=== PATIENT | male | born 1955 | race Two or more races ===

== ENCOUNTER 2019-06-16 19:07 | Inpatient (IN) | payer BC, OTHER ==
[~2019-06-16] VITALS: Ht 205.7 cm; Wt 141.5 kg
[2019-06-16] MEDS ORDERED: SODIUM CHLORIDE 0.9% 500 ML IV ONE (20:15)
[2019-06-16] MEDS: NOREPINEPHRINE 8 MG/250ML KIT 250 ML IV SCH (20:20)
[2019-06-16] MEDS ORDERED: NOREPINEPHRINE 8 MG/250ML KIT 250 ML IV SCH (20:35)
[2019-06-16 21:17] LABS: Basophils # (auto) 0 10 ^3/uL (0-0.2); Basophils % (auto) 0.2 % (0.0-2.0); Eosinophils # (auto) 0 10 ^3/uL (0-0.8); Hematocrit 25.7 % (41.0-53.0); Hemoglobin 8.1 g/dL (13.5-17.5); Platelet Count (auto) 314 10^3/uL (140-450)
[2019-06-16 21:19] LABS: Eosinophils % (auto) 0.2 % (0.0-7.0); Lymphocytes # (auto) 0.8 10 ^3/uL (0.4-5.4); Lymphocytes % (auto) 5.2 % (10.0-50.0); Mean Corpuscular Hemoglobin 24.2 pg (28.0-32.0); Mean Corpuscular Hgb Conc. 31.4 g/dL (32.0-36.0); Mean Corpuscular Volume 76.9 fL (80.0-100.0); Monocytes % (auto) 6.6 % (0.0-12.0); Neutrophils # (auto) 13.8 10 ^3/uL (1.6-8.6); Neutrophils % (auto) 87.8 % (37.0-80.0); Red Blood Cells 3.34 10^6/uL (4.5-5.90); Red Cell Distribution Width 17.2 % (11.8-14.3); White Blood Cell 15.7 10^3/uL (4.4-10.8)
[2019-06-16 21:34] LABS: Albumin 2.2 g/dL (3.4-5.0); Calcium 8.7 mg/dL (8.5-10.1); Magnesium 2.5 mg/dL (1.6-2.6); Potassium 3.2 mmol/L (3.5-5.1)
[2019-06-16 21:38] LABS: Partial Thromboplastin Time 54.9 sec (23.64-32.05)
[2019-06-16 21:40] LABS: INR 4.89 (0.9-1.15)
[2019-06-16 21:42] LABS: BUN/Creatinine Ratio 18.4; Bilirubin, Total 0.3 mg/dL (0.2-1.0); Total Protein 6.5 g/dL (6.4-8.2)
[2019-06-17 01:02] LABS: Urine Bacteria MOD /hpf (None Seen); Urine Blood 3+ /uL (Negative); Urine Mucus FEW (None Seen); Urine Specific Gravity 1.014 (1.001-1.035); Urine WBC 4500 /hpf (0 - 3); Urine WBC Clumps PRESENT /hpf (None Seen)
[2019-06-17] MEDS ORDERED: SODIUM CHLORIDE 0.9% 1,000 ML IV SCH (01:45)
[2019-06-17] MEDS ORDERED: MORPHINE SULFATE 4 MG/ML SYR/VIAL IV PRN (01:45)
[2019-06-17] MEDS ORDERED: DEXTROSE (50%) 50ML SYRG IV PRN (01:45)
[2019-06-17] MEDS ORDERED: ACETAMINOPHEN 325 MG TAB PO PRN (01:45)
[2019-06-17] MEDS ORDERED: NITROGLYCERIN 0.4 MG SL TAB SL PRN (01:45)
[2019-06-17] MEDS ORDERED: POTASSIUM CHLORIDE 20 MEQ in D5W 5% 1,000 ML IV ONE (01:45)
[2019-06-17] MEDS ORDERED: HYDROcodone-ACET 5/325MG TAB PO PRN (01:45)
[2019-06-17] MEDS: cefTRIAXone 1GM/50ML D5W 50 ML IV SCH (02:23)
[2019-06-17] MEDS: POTASSIUM CHL 20MEQ/100ML 100 ML IV SCH ×2 (03:32→05:33)
[2019-06-17 03:38] LABS: Alcohol, Urine < 3.0 mg/dL (0-5); Amphetamine Screen, Urine NEGATIVE (NEGATIVE); Barbiturate Scree,Urine NEGATIVE (NEGATIVE); Cannabinoid Screen, Urine NEGATIVE (NEGATIVE); Cocaine Screen, Urine NEGATIVE (NEGATIVE); Opiate Scree,Urine NEGATIVE (NEGATIVE); Phencyclidine Screen, Urine NEGATIVE (NEGATIVE)
[2019-06-17 03:46] LABS: Benzodiazephine Screen, Urine POSITIVE (NEGATIVE)
[2019-06-17] MEDS: InsuLIN REG 1unit/0.01ml Soln (100units/ml) SC SCH ×5 (04:00→20:00)
[2019-06-17] MEDS: ACCU-CHEK COMFORT CURVE STRIP VI SCH ×5 (04:06→20:00)
[2019-06-17 06:53] LABS: Basophils # (auto) 0.1 10 ^3/uL (0-0.2); Eosinophils # (auto) 0.1 10 ^3/uL (0-0.8); Hematocrit 29.3 % (41.0-53.0); Lymphocytes # (auto) 1.6 10 ^3/uL (0.4-5.4); Mean Corpuscular Volume 77.8 fL (80.0-100.0); Red Blood Cells 3.76 10^6/uL (4.5-5.90)
[2019-06-17 06:54] LABS: Basophils % (auto) 0.6 % (0.0-2.0); Eosinophils % (auto) 0.5 % (0.0-7.0); Hemoglobin 9.1 g/dL (13.5-17.5); Lymphocytes % (auto) 9.7 % (10.0-50.0); Mean Corpuscular Hemoglobin 24.1 pg (28.0-32.0); Monocytes # (auto) 1.3 10 ^3/uL (0-1.3); Monocytes % (auto) 8.1 % (0.0-12.0); Neutrophils # (auto) 13.6 10 ^3/uL (1.6-8.6); Neutrophils % (auto) 81.1 % (37.0-80.0); Platelet Count (auto) 391 10^3/uL (140-450); Red Cell Distribution Width 17.1 % (11.8-14.3); White Blood Cell 16.8 10^3/uL (4.4-10.8)
[2019-06-17 07:06] LABS: Calcium 8.9 mg/dL (8.5-10.1); Potassium 3.3 mmol/L (3.5-5.1)
[2019-06-17 07:11] LABS: BUN/Creatinine Ratio 17.2
[2019-06-17] MEDS ORDERED: SODIUM BICARBONATE 50ML VIAL 75 ML, POTASSIUM CHLORIDE 20 MEQ in SOD CHL 0.45% 1,000 ML IV SCH (10:00)
[2019-06-17 10:25] LABS: INR 5.02 (0.9-1.15)
[2019-06-17] MEDS ORDERED: BUMETANIDE 2.5mg/10ml (0.25 mg/ml) INJ IV ONE (11:00)
[2019-06-17] MEDS ORDERED: POTASSIUM CHL 20 Meq TABLET PO ONE ×2 (11:15→17:15)
[2019-06-17 12:42] LABS: Folate (Folic Acid) 16.79 ng/mL (5.38-24)
[2019-06-17] MEDS: NOREPINEPHRINE 8 MG/250ML KIT 250 ML IV SCH ×2 (14:38→19:33)
[2019-06-17] MEDS: SODIUM BICARBONATE 50ML VIAL 75 ML, POTASSIUM CHLORIDE 20 MEQ in SOD CHL 0.45% 1,000 ML IV SCH ×2 (15:28→22:15)
[2019-06-17] MEDS ORDERED: WARF5TAB71 PO (15:39)
[2019-06-17] MEDS ORDERED: AMLO5TAB15 PO (15:41)
[2019-06-17] MEDS ORDERED: METO-169 PO (15:42)
[2019-06-17] MEDS ORDERED: CLON0.3D4 PO (15:43)
[2019-06-17] MEDS ORDERED: BENA5TAB5 PO (15:45)
[2019-06-17] MEDS ORDERED: ATOR20TA PO (15:45)
[2019-06-17] MEDS ORDERED: SEMA2INJ SC (15:47)
[2019-06-17] MEDS ORDERED: TAMS0.4C36 PO (15:48)
[2019-06-17] MEDS ORDERED: MIRA25TA OR (15:49)
[2019-06-17 16:30] LABS: Calcium 8.6 mg/dL (8.5-10.1); Magnesium 1.9 mg/dL (1.6-2.6)
[2019-06-17 16:32] LABS: BUN/Creatinine Ratio 18.1
[2019-06-17 16:36] LABS: Potassium 2.9 mmol/L (3.5-5.1)
[2019-06-17] MEDS ORDERED: TAMSULOSIN HYDROCHLORIDE 0.4 MG CAP PO ONE (17:00)
[2019-06-17] MEDS ORDERED: dilTIAZem 25 MG/5 ML VIAL IV PRN (17:00)
[2019-06-17] MEDS: DOBUTamine 1000MCG/ML 250 ML IV SCH ×2 (17:13→23:21)
[2019-06-17] MEDS ORDERED: POTASSIUM CHLORIDE 40 MEQ in D5W 5% 1,000 ML IV SCH (17:15)
[2019-06-17] MEDS ORDERED: SODIUM CHLORIDE 0.9% 2,000 ML IV ONE (17:15)
[2019-06-17] MEDS ORDERED: POTASSIUM CHL 20MEQ/100ML 100 ML IV ONE ×2 (17:30→19:30)
[2019-06-17] MEDS: ONDANSETRON HCL 4 MG/2 ML VIAL IV PRN (22:01)
[2019-06-17] MEDS: MORPHINE SULF INJ 2 MG/ML SYRINGE 1ML IV PRN ×2 (22:01→22:36)
[2019-06-18] VITALS (42 sets, daily range): BP systolic 93–148; BP diastolic 32–90
[2019-06-18] MEDS: ACCU-CHEK COMFORT CURVE STRIP VI SCH ×6 (00:07→20:11)
[2019-06-18] MEDS: InsuLIN REG 1unit/0.01ml Soln (100units/ml) SC SCH ×6 (00:22→20:00)
[2019-06-18] MEDS: NOREPINEPHRINE 8 MG/250ML KIT 250 ML IV SCH ×2 (01:35→06:36)
[2019-06-18] MEDS: cefTRIAXone 1GM/50ML D5W 50 ML IV SCH (02:00)
[2019-06-18 02:13] LABS: Basophils # (auto) 0.1 10 ^3/uL (0-0.2); Eosinophils # (auto) 0.3 10 ^3/uL (0-0.8); Nucleated Red Blood Cells % 0.1 %; White Blood Cell 14.8 10^3/uL (4.4-10.8)
[2019-06-18 02:15] LABS: Basophils % (auto) 0.5 % (0.0-2.0); Eosinophils % (auto) 2.1 % (0.0-7.0); Hemoglobin 8.4 g/dL (13.5-17.5); Lymphocytes # (auto) 1.8 10 ^3/uL (0.4-5.4); Lymphocytes % (auto) 12.3 % (10.0-50.0); Mean Corpuscular Hemoglobin 23.5 pg (28.0-32.0); Mean Corpuscular Hgb Conc. 30.1 g/dL (32.0-36.0); Mean Corpuscular Volume 78.2 fL (80.0-100.0); Monocytes # (auto) 1.3 10 ^3/uL (0-1.3); Monocytes % (auto) 8.6 % (0.0-12.0); Neutrophils # (auto) 11.3 10 ^3/uL (1.6-8.6); Neutrophils % (auto) 76.5 % (37.0-80.0); Platelet Count (auto) 391 10^3/uL (140-450); Red Blood Cells 3.58 10^6/uL (4.5-5.90); Red Cell Distribution Width 17.7 % (11.8-14.3)
[2019-06-18 02:34] LABS: BUN/Creatinine Ratio 19.3; Calcium 8.1 mg/dL (8.5-10.1); Potassium 3.3 mmol/L (3.5-5.1)
[2019-06-18] MEDS ORDERED: POTASSIUM CHL 20MEQ/100ML 100 ML IV ONE (04:15)
[2019-06-18] MEDS: DOBUTamine 1000MCG/ML 250 ML IV SCH ×4 (05:29→23:53)
[2019-06-18] MEDS: DOCUSATE SOD 100 MG CAP PO PRN (05:34)
[2019-06-18] MEDS: SODIUM BICARBONATE 50ML VIAL 75 ML, POTASSIUM CHLORIDE 20 MEQ in SOD CHL 0.45% 1,000 ML IV SCH ×2 (08:08→16:19)
[2019-06-18] MEDS: ONDANSETRON HCL 4 MG/2 ML VIAL IV PRN (08:31)
[2019-06-18] MEDS ORDERED: SODIUM CHLORIDE 0.9% 1,000 ML IV ONE (08:45)
--- NOTE | 2019-06-18 09:30 | NUR ---
Pt being admitted to ICU NATE REYES admitted to ICU via gurney on cardiac cath lab manager, and portable 02. Patient transferred to bed, connected to ICU monitoring and oxygen, and weighed by bedscale. Patient oriented to Emy braga RN, unit, room, bed, and unit policies regarding patient care and visiting hours. All questions and concerns addressed, patient verbalized understanding. PT currently on 30mcg of Levophed to right upper arm midline. Site asymptomatic. Fluids as ordered infusing to right hand peripheral iv. Iv patent and flushed. Pt vss. Eaton draining yellow, cloudy urine to gravity. All belongings reviewed with patient. Patient give food at bedside as coverage was given by Er nurse. Patient denies any pain at this time. Skin noted to have right abrasion to knee and left knee noted to have ecchymosis. Patient placed on fall precautions. See further notes/ orders. , Pia updated on patients status. Questions and concerns addressed. NOTE:
--- NOTE | 2019-06-18 10:00 | NUR ---
C [address] B[address]IDE [address] KEITH UPDATED ON PATIENT STATUS. 1030 LAB DRAWS TO BE CHANGED TO 1300 TO MONITOR POTASSIUM STATED HE DOES NOT WANT PATIENT TO BECOME HYPERKALEMIC.
[2019-06-18] MEDS ORDERED: POTASSIUM CHLORIDE 40 MEQ, LIDOCAINE 1% (LOCAL ANESTH.) 4 ML in SODIUM CHL 0.9% 100 ML IV ONE (10:30)
[2019-06-18] MEDS ORDERED: POTASSIUM CHL 20 Meq TABLET PO ONE ×2 (10:30→15:00)
--- NOTE | 2019-06-18 10:45 | NUR ---
DESATURATION PATIENT NOTED TO BE SLEEPING AND REMOVED NC FROM NARES AND SET OVER HEAD. POX NOTED 84%. PATIENT AWAKE TO NAME AND PLACED NC BACK IN PLACE. POC 96% ON 2L/MIN NC. WILL CONTINUE TO MONITOR.
[2019-06-18] MEDS: MAGNESIUM SULFATE 1GM/100ML 100 ML IV SCH ×4 (11:00→17:35)
--- NOTE | 2019-06-18 11:29 | NUR ---
MEDICATION HELD AT THIS TIME IV/ PO POTASSIUM HELD UNTIL 1300 LAB DRAW PER CONVERSATION WITH HOT MILL OBSERVER.
--- NOTE | 2019-06-18 12:05 | NUR ---
HOSPITALIST DR. ATWOOD AT BEDSIDE. AWARE OF PENDING LABS FOR K/MG COVERAGE. PER MD OK TO FOLLOW TOOTH CLERK RECOMMENDATIONS. SEE NEW ORDERS.
--- NOTE | 2019-06-18 12:10 | NUR ---
NAUSEA PATIENT COMPLAINING OF SLIGHT NAUSEA AND STATING HE IS UNCOMFORTABLE SINCE HE HAS NOT HAD A BM IN 5 DAYS. PAGED TO NOTIFY. NEW ORDERS IN PLACE.
[2019-06-18] MEDS ORDERED: LACTULOSE 20Gm/30ML SOLN PO PRN (12:15)
[2019-06-18] MEDS ORDERED: POLYETHYLENE GLYCOL 17 GM PWDR PO ONE (12:15)
[2019-06-18 13:18] LABS: Calcium 7.7 mg/dL (8.5-10.1); Magnesium 1.7 mg/dL (1.6-2.6); Potassium 3.3 mmol/L (3.5-5.1)
[2019-06-18 13:20] LABS: BUN/Creatinine Ratio 16.1
[2019-06-18 14:06] LABS: INR 6.19 (0.9-1.15)
--- NOTE | 2019-06-18 14:16 | NUR ---
CRITICAL INR DR. ATWOOD PAGED REGARDING CRITICAL INR 6.19. CALLED BACK. PT TO BE MONITORED FOR ANY BLEEDING. INR TO BE CHECKED IN A.M.
--- NOTE | 2019-06-18 14:20 | NUR ---
BOBBIN DISKER PAGED RE: FOLLOW UP BMP. AWAITING CALLBACK.
--- NOTE | 2019-06-18 15:07 | NUR ---
CONSTIPATION PATIENT CONTINUES TO FEEL "BLOATED". ABD SOFT, NONDISTENDED. PRN LACTULOSE GIVEN.
--- NOTE | 2019-06-18 15:12 | NUR ---
POTASSIUM REPLACEMENT COVERAGE TO BE FOLLOWED INSTRUCTED BY HOSPITALIST.
--- NOTE | 2019-06-18 15:54 | NUR ---
Family updated on pt status Family of NATE REYES updated on patient's status and condition. All questions and concerns addressed. GrandsonSumit verbalized understanding.
--- NOTE | 2019-06-18 18:55 | NUR ---
Family updated on pt status Family of NATE REYES updated on patient's status and condition. All questions and concerns addressed. verbalized understanding.
--- NOTE | 2019-06-18 19:00 | NUR ---
OPENING NOTE ASSUMED CARE OF PATIENT AT THIS TIME. REPORT RECEIVED FROM DAY SHIFT RN. POC REVIEWED. HEAD TO TOE ASSESSMENT COMPLETE, SEE INTERVENTION SPREADSHEET FOR COMPLETE DETAILS. RECEIVED PT ALERT AND ORIENTED X4. VSS. IV SITES BENIGN. SMITH CATHETER DRAINING TO GRAVITY, URINE APPEARANCE PINK TINGED. PT COMPLAINS OF PAIN IN URETHRA. PT ON 2LTS NC. CALL LIGHT WITH IN REACH. BED LOCKED AND IN LOWEST POSITION, SAFETY PRECAUTIONS IN PLACE. WILL MONITOR PT CAREFULLY.
--- NOTE | 2019-06-18 22:52 | NUR ---
Bed solorzano Pt placed on bed solorzano. Pt did not have any output. Complete bed bath and linen change done at this time. Pt assists with turns. pt tolerated well. VSS. Safety precautions maintained. Bed locked and in lowest position, call light within reach.
[2019-06-19] VITALS (22 sets, daily range): BP systolic 95–145; BP diastolic 36–79
[2019-06-19] MEDS: ACCU-CHEK COMFORT CURVE STRIP VI SCH ×7 (00:25→23:18)
[2019-06-19] MEDS: SODIUM BICARBONATE 50ML VIAL 75 ML, POTASSIUM CHLORIDE 20 MEQ in SOD CHL 0.45% 1,000 ML IV SCH ×2 (01:44→10:25)
[2019-06-19] MEDS: cefTRIAXone 1GM/50ML D5W 50 ML IV SCH (02:00)
[2019-06-19 03:59] LABS: Basophils # (auto) 0.1 10 ^3/uL (0-0.2); Basophils % (auto) 0.9 % (0.0-2.0); Eosinophils # (auto) 0.5 10 ^3/uL (0-0.8); Eosinophils % (auto) 5.3 % (0.0-7.0); Hematocrit 24.7 % (41.0-53.0); Hemoglobin 7.9 g/dL (13.5-17.5); Lymphocytes # (auto) 1.5 10 ^3/uL (0.4-5.4); Lymphocytes % (auto) 15.1 % (10.0-50.0); Mean Corpuscular Hemoglobin 24.1 pg (28.0-32.0); Mean Corpuscular Hgb Conc. 31.9 g/dL (32.0-36.0); Mean Corpuscular Volume 75.5 fL (80.0-100.0); Monocytes # (auto) 0.6 10 ^3/uL (0-1.3); Monocytes % (auto) 6.2 % (0.0-12.0); Neutrophils # (auto) 7.4 10 ^3/uL (1.6-8.6); Neutrophils % (auto) 72.5 % (37.0-80.0); Nucleated Red Blood Cells % 0.2 %; Platelet Count (auto) 375 10^3/uL (140-450); Red Blood Cells 3.26 10^6/uL (4.5-5.90); Red Cell Distribution Width 17.9 % (11.8-14.3); White Blood Cell 10.2 10^3/uL (4.4-10.8)
[2019-06-19] MEDS: InsuLIN REG 1unit/0.01ml Soln (100units/ml) SC SCH ×7 (04:00→23:18)
[2019-06-19 04:21] LABS: BUN/Creatinine Ratio 14.7; Calcium 7.9 mg/dL (8.5-10.1); Magnesium 2.1 mg/dL (1.6-2.6); Phosphorus 1.9 mg/dL (2.5-4.90); Potassium 3.5 mmol/L (3.5-5.1)
[2019-06-19 04:47] LABS: INR 5.89 (0.9-1.15)
[2019-06-19] MEDS: DOBUTamine 1000MCG/ML 250 ML IV SCH ×2 (06:01→12:09)
--- NOTE | 2019-06-19 07:25 | NUR ---
INITIAL ASSESSMENT Report received from Gris RODAS, care assumed. Patient is awake, alert, and oriented. Patient denies pain or distress at this time. Patient able to follow commands and assist with repositioning. Vitals stable. Patient on room air, lungs clear with oxygen saturation 95%, pt denies shortness of breath. Patient stated he has had hematuria on and off for a year. Urine in yellow with clots present in Eaton catheter that is secure, and hung below bladder. Patient has poor appetite, but requesting apples this morning. Patient denies flatus. Will administer PRN constipation medication. See skin assessment and IV spreadsheet. Bed locked in lowest position, call light within reach. Patient instructed to call for assistance, patient verbalized understanding.
--- NOTE | 2019-06-19 08:30 | NUR ---
MD VISIT: NEPHROLOGY at bedside speaking with patient regarding plan of care. No new orders at this time.
--- NOTE | 2019-06-19 10:12 | NUR ---
BED SOLORZANO Patient placed on bed solorzano. Patient passing gas but unable to have bowel movement at this time. Vitals remain stable. Positioned with head of bed elevated, call light within reach. Physical therapist paged to bedside for ambulation.
[2019-06-19] MEDS ORDERED: SODIUM PHOSPHATES 24 MEQ in SODIUM CHL 0.9% 100 ML IV ONE (10:15)
[2019-06-19] MEDS ORDERED: VANCOMYCIN PER PHARMACY 0 MG IV SCH (10:15)
--- NOTE | 2019-06-19 10:33 | NUR ---
PHYSICAL THERAPY Patient ambulated one lap around nursing station with two Physical therapist, walker, and oxygen. Patient tolerated activity well. Patient now resting in chair with call light within reach. Patient instructed to call for assistance and not attempt to get out of bed. Patient verbalized understanding.
--- NOTE | 2019-06-19 10:59 | NUR ---
AMBULATION Patient found standing at bedside. Patient ambulated without call for assistance. Patient educated on risk for falls and safety with ambulation. Patient returned to chair and instructed to call for assistance. Patient stated he felt like he needed to urinate. Small clot noted in Eaton catheter line, manual irrigation performed and clot removed. Urine mcduffie color, free flowing at this time. Patient denies discomfort. Will continue to monitor.
[2019-06-19] MEDS ORDERED: VANCOMYCIN 1GM/250ML 250 ML IV ONE (11:00)
--- NOTE | 2019-06-19 12:38 | NUR ---
ACTIVITY Patient stated he was tired and wanting to return to bed for a nap. Ambulated back back to bed with minimal to standby assistance. Patient was reaching for furniture for assistance. Patient instructed to stand up straight. Patient positioned self in bed. Vitals stable. Complete linen change completed prior to patient returning to bed. Bed locked in lowest position, call light within reach. Patient instructed to call for assistance. Patient verbalized understanding.
--- NOTE | 2019-06-19 14:20 | NUR ---
ECHO quality control lab tech at bedside.
--- NOTE | 2019-06-19 14:35 | NUR ---
MD VISIT: PCP at bedside. MD aware of labs, IV medications, and vitals signs. MD okay with downgrading patient to tele unit.
[2019-06-19] MEDS ORDERED: OPTISON 3ml Vial for INJ IV ONE ×2 (14:45→14:50)
--- NOTE | 2019-06-19 15:12 | NUR ---
ACTIVITY Patient ambulated to bedside chair with walker and standby assistance. Patient tolerated activity well. No distress noted. Vital signs remain stable during activity.
--- NOTE | 2019-06-19 15:45 | NUR ---
assessment Patient is a 63 year old male who is in ICU. Per patients Pia prior to admission he lived home with her and functioned independently. Per Pia patient has crutches for home use. Patients PCP is Dr Fatima at [facility] [place]. Per Pia patient went to Urgent care for black stools and they sent him to ER at [facility]. Patient was then admitted. Once released last weekend he came home and his blood pressure dropped and Pia called 911 and patient was brought to [facility] and admitted. I informed Pia that patients post discharge needs to be determined prior to discharge. Pia verbalized understanding. Addendum: 06/19/19 at 1554 by Michelle CHAUHAN Amended: Links added.
--- NOTE | 2019-06-19 16:20 | NUR ---
ICU patient trans to floor NATE REYES transferred to 248A via bed on TELE#4. All patient medications and personal belongings transferred with patient to receiving floor. Patient care transferred to Margarita RODAS. Bed alarm placed, bed locked in lowest position.
[2019-06-19] MEDS: TAMSULOSIN HYDROCHLORIDE 0.4 MG CAP PO SCH (17:51)
[2019-06-19] MEDS: VANCOMYCIN 1GM/250ML 250 ML IV SCH ×2 (17:51→22:51)
[2019-06-19] MEDS: ONDANSETRON HCL 4 MG/2 ML VIAL IV PRN (19:53)
--- NOTE | 2019-06-19 20:42 | NUR ---
LAB CONTACTED INFORMED THEM OF NECESSITY OF ON TIME VANCO TROUGH AT 0400 ON 05/22. LAB VERIFIED ORDER AND STATED A NOTE WILL BE LEFT TO ONCOMING SHIFT TO ENSURE ON TIME DRAW.
[2019-06-20] VITALS (8 sets, daily range): BP systolic 94–141; BP diastolic 41–68
[2019-06-20] MEDS: cefTRIAXone 1GM/50ML D5W 50 ML IV SCH (01:17)
--- NOTE | 2019-06-20 03:03 | NUR ---
Opening Shift Note Assumed care of patient, awake and alert. No S/S of distress/SOB or pain. Instructed on POC and to call for assist PRN, will continue to monitor for changes Q1hr and PRN.
[2019-06-20] MEDS: ACCU-CHEK COMFORT CURVE STRIP VI SCH ×5 (04:00→22:28)
[2019-06-20] MEDS: InsuLIN REG 1unit/0.01ml Soln (100units/ml) SC SCH ×4 (04:00→18:00)
[2019-06-20 04:12] LABS: Basophils # (auto) 0.1 10 ^3/uL (0-0.2); Eosinophils # (auto) 0.6 10 ^3/uL (0-0.8); Hemoglobin 7.4 g/dL (13.5-17.5); Monocytes # (auto) 0.7 10 ^3/uL (0-1.3); Monocytes % (auto) 7.2 % (0.0-12.0); Nucleated Red Blood Cells % 0.1 %
[2019-06-20 04:14] LABS: Eosinophils % (auto) 6.8 % (0.0-7.0); Hematocrit 23.1 % (41.0-53.0); Lymphocytes # (auto) 1.8 10 ^3/uL (0.4-5.4); Lymphocytes % (auto) 19.8 % (10.0-50.0); Mean Corpuscular Hemoglobin 24.2 pg (28.0-32.0); Mean Corpuscular Hgb Conc. 32.2 g/dL (32.0-36.0); Mean Corpuscular Volume 75.1 fL (80.0-100.0); Neutrophils # (auto) 6.1 10 ^3/uL (1.6-8.6); Neutrophils % (auto) 65.2 % (37.0-80.0); Platelet Count (auto) 433 10^3/uL (140-450); Red Blood Cells 3.08 10^6/uL (4.5-5.90); Red Cell Distribution Width 17.7 % (11.8-14.3); White Blood Cell 9.4 10^3/uL (4.4-10.8)
[2019-06-20 04:28] LABS: INR 3.97 (0.9-1.15)
[2019-06-20 04:30] LABS: BUN/Creatinine Ratio 12.9; Calcium 7.5 mg/dL (8.5-10.1)
[2019-06-20 04:32] LABS: Potassium 2.9 mmol/L (3.5-5.1)
--- NOTE | 2019-06-20 04:37 | NUR ---
CRITICAL LAB VALUE POTASSIUM 2.9. HOSPITALIST TO BE CONTACTED. WILL CONTINUE TO MONITOR.
[2019-06-20] MEDS: VANCOMYCIN 1GM/250ML 250 ML IV SCH ×4 (04:53→23:00)
--- NOTE | 2019-06-20 05:00 | NUR ---
HOSPITALIST ALIZA PATIENT HAS A CRITICAL LAB VALUE. PATIENT'S POTASSIUM IS NOW 2.9. THIS IS A DECREASE FROM 3.5. PATIENT IS ASYMPTOMATIC AND AOX4 AND AMBULATORY. WILL AWAIT CALL BACK OR ORDERS. Addendum: 06/20/19 at 0510 by MATTY PRITCHETT RN ORDERS RECEIVED. WILL IMPLEMENT ONCE AVAILABLE.
[2019-06-20] MEDS ORDERED: POTASSIUM CHL 20 Meq TABLET PO ONE ×2 (05:30→15:45)
[2019-06-20] MEDS: DOCUSATE SOD 100 MG CAP PO PRN (06:15)
[2019-06-20] MEDS ORDERED: PHYTONADIONE (VitK) ORAL Susp 1 MG/ML PO ONE (10:45)
[2019-06-20] MEDS: MORPHINE SULF INJ 2 MG/ML SYRINGE 1ML IV PRN ×2 (16:16→22:11)
--- NOTE | 2019-06-20 16:44 | NUR ---
Patient refused PT. CLARK Avila was notified. Addendum: 06/20/19 at 1645 by CHRISTOPHER WILLS PTT Amended: Links added.
[2019-06-20] MEDS: TAMSULOSIN HYDROCHLORIDE 0.4 MG CAP PO SCH (17:55)
--- NOTE | 2019-06-20 19:20 | NUR ---
opening note pt A&Ox4. respirations are even and non labored on room air. forbes in place, no kinks below bladder off floor and draining to gravity. fall precautions. bed in low locked position, call light within reach.
[2019-06-20] MEDS ORDERED: InsuLIN REG 1unit/0.01ml Soln (100units/ml) SC SCH (22:00)
[2019-06-21] MEDS: cefTRIAXone 1GM/50ML D5W 50 ML IV SCH (02:00)
[2019-06-21] MEDS: VANCOMYCIN 1GM/250ML 250 ML IV SCH ×2 (04:47→10:47)
[2019-06-21] MEDS: MORPHINE SULF INJ 2 MG/ML SYRINGE 1ML IV PRN (04:58)
[2019-06-21 05:38] VITALS: BP 145/80
[2019-06-21] MEDS: ACCU-CHEK COMFORT CURVE STRIP VI SCH ×2 (06:21→11:56)
[2019-06-21] MEDS: InsuLIN REG 1unit/0.01ml Soln (100units/ml) SC SCH ×2 (06:29→11:58)
[2019-06-21 06:31] LABS: Eosinophils # (auto) 0.7 10 ^3/uL (0-0.8); Hemoglobin 7.9 g/dL (13.5-17.5); Lymphocytes # (auto) 1.5 10 ^3/uL (0.4-5.4); Monocytes # (auto) 0.6 10 ^3/uL (0-1.3)
[2019-06-21 06:34] LABS: Basophils # (auto) 0.1 10 ^3/uL (0-0.2); Basophils % (auto) 1.3 % (0.0-2.0); Eosinophils % (auto) 8.9 % (0.0-7.0); Hematocrit 24.4 % (41.0-53.0); Lymphocytes % (auto) 19.7 % (10.0-50.0); Mean Corpuscular Hemoglobin 24.8 pg (28.0-32.0); Mean Corpuscular Hgb Conc. 32.5 g/dL (32.0-36.0); Mean Corpuscular Volume 76.4 fL (80.0-100.0); Monocytes % (auto) 7.6 % (0.0-12.0); Neutrophils # (auto) 4.7 10 ^3/uL (1.6-8.6); Neutrophils % (auto) 62.5 % (37.0-80.0); Platelet Count (auto) 410 10^3/uL (140-450); Red Blood Cells 3.19 10^6/uL (4.5-5.90); Red Cell Distribution Width 17.9 % (11.8-14.3); White Blood Cell 7.6 10^3/uL (4.4-10.8)
[2019-06-21 06:50] LABS: BUN/Creatinine Ratio 9.3; Calcium 7.7 mg/dL (8.5-10.1); INR 1.73 (0.9-1.15); Magnesium 1.8 mg/dL (1.6-2.6)
[2019-06-21 06:55] LABS: Potassium 2.9 mmol/L (3.5-5.1)
--- NOTE | 2019-06-21 06:59 | NUR ---
critical lab low potassium of 2.9, paged hospitalist
--- NOTE | 2019-06-21 07:01 | NUR ---
new orders received from hospitalist Rizvi Potassium 40 Daniel PO once. orders read back and received.
--- NOTE | 2019-06-21 07:02 | NUR ---
closing note pt A&Ox4. respirations are even and non labored. pt denies any pain or discomfort at this time. bed is in low locked position, call light within reach.
[2019-06-21] MEDS ORDERED: POTASSIUM CHL 20 Meq TABLET PO ONE (07:15)
[2019-06-21 09:00] VITALS: BP 124/59
[2019-06-21] MEDS ORDERED: MAGNESIUM OXIDE 400 MG TAB PO ONE (11:00)
[2019-06-21 13:00] VITALS: BP 115/42
[2019-06-21] MEDS ORDERED: POTASSIUM CHL 20 Meq TABLET PO SCH (14:00)
--- NOTE | 2019-06-21 14:58 | NUR ---
NUTRITION ASSESSMENT NOTES Please refer to link notes of nutrition screen form filed under the intervention section of the plan of care for further details. Est. Energy Needs: 4274-9396 kcal (12-15 kcal/kg BW). Est. Protein Needs: 90-99 gms/day (1.0-1.1 gms/kg Adj.BW). Will continue to monitor pertinent labs and reassess nutrient need prn Addendum: 06/21/19 at [address] Amended: Links added.
--- NOTE | 2019-06-21 16:45 | NUR ---
[place] WILSON/ TO CT Spoke with Dr. Shaver regarding potassium level of 3.5. He stated he would discharge the patient home. He said to go ahead and remove the Eaton catheter. Catheter was removed, intact, with no problem. Telemetry was removed and sent to ICU per hospital protocol.
[2019-06-21 17:00] VITALS: BP 137/76
[2019-06-21] MEDS ORDERED: POTA-220 PO (17:01)
[2019-06-21] MEDS ORDERED: MAGN400T21 PO (17:01)
[2019-06-21] MEDS ORDERED: LEVO500T21 PO (17:01)
[2019-06-21] MEDS ORDERED: TAM04C PO (17:01)
--- NOTE | 2019-06-21 18:10 | NUR ---
Discharge Went over paperwork with patient. IVs and ML removed intact. Prescriptions were called into the pharmacy by the MD. Telemetry previously sent to ICU per hospital protocol. ID bands removed. Patient was picked up by in personal vehicle. He was taken out to the car in a wheelchair with all personal belongings.
[2019-06-21] MEDS ORDERED: MAGNESIUM OXIDE 400 MG TAB PO SCH (22:00)
== END 2019-06-21 18:10 | disposition home or self-care (01) | DRG 871 ==
LOC: EDBD 19:07 → ER 19:07 → OVERFLOW 19:08 → ICU WEST 06-18 09:29 → EAST 06-19 16:14 → TELE-EAST 06-19 19:30
PROVIDERS: ADMIT Hospitalist; ATTEND Internal Medicine
PROC: 30233N1 Transfusion of Nonautologous Red Blood Cells into Peripheral Vein, Percutaneous Approach (ICD-10-PCS; principal; 2019-06-20)
DX: A41.9 Sepsis, unspecified organism (principal); R65.21 Severe sepsis with septic shock; N39.0 Urinary tract infection, site not specified; N17.9 Acute kidney failure, unspecified; D68.59 Other primary thrombophilia; I82.409 Acute embolism and thrombosis of unspecified deep veins of unspecified lower extremity; I13.0 Hypertensive heart and chronic kidney disease with heart failure and stage 1 through stage 4 chronic kidney disease, or unspecified chronic kidney disease; S09.8XXA Other specified injuries of head, initial encounter; E87.6 Hypokalemia; T50.991A Poisoning by other drugs, medicaments and biological substances, accidental (unintentional), initial encounter; R31.9 Hematuria, unspecified; E66.9 Obesity, unspecified; I48.91 Unspecified atrial fibrillation; I50.9 Heart failure, unspecified; N40.0 Benign prostatic hyperplasia without lower urinary tract symptoms; E78.5 Hyperlipidemia, unspecified; S09.90XA Unspecified injury of head, initial encounter; R63.4 Abnormal weight loss; I71.2 Thoracic aortic aneurysm, without rupture; C67.9 Malignant neoplasm of bladder, unspecified; E11.65 Type 2 diabetes mellitus with hyperglycemia; D64.9 Anemia, unspecified; E11.22 Type 2 diabetes mellitus with diabetic chronic kidney disease; W18.39XA Other fall on same level, initial encounter; N18.9 Chronic kidney disease, unspecified; B95.8 Unspecified staphylococcus as the cause of diseases classified elsewhere; Z79.01 Long term (current) use of anticoagulants; Y93.89 Activity, other specified; Y92.89 Other specified places as the place of occurrence of the external cause; Y99.8 Other external cause status; Z68.33 Body mass index [BMI] 33.0-33.9, adult
CPT/HCPCS: 36415; 36600; 70450; 71045; 71250; 72125; 74176; 76775; 80048; 80053; 80061; 80202; 80307; 81001; 82010; 82607; 82746; 82805; 82962; 83036; 83605; 83735; 83880; 84100; 84132; 84154; 84443; 84484; 85025; 85610; 85730; 86850; 86900; 86901; 86920; 87040; 87077; 87081; 87086; 87186; 93306; 96365; 96366; 96375; 97163; 99291; G0378; J0696; J1815; J2001; J2405; J3480; Q9956